=== PATIENT | male | born 1980 | race African-American/Black ===

== ENCOUNTER 2018-10-06 13:20 | Emergency (ER) | payer SELFPAY ==
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
== END 2018-10-06 14:17 | disposition home or self-care (01) ==
LOC: ER 13:20
DX: T21.42XA Corrosion of unspecified degree of abdominal wall, initial encounter (principal); T22.4 Corrosion of unspecified degree of shoulder and upper limb, except wrist and hand; T65.891A Toxic effect of other specified substances, accidental (unintentional), initial encounter; Y93.89 Activity, other specified; Y92.89 Other specified places as the place of occurrence of the external cause; Y99.8 Other external cause status; Z88.5 Allergy status to narcotic agent
CPT/HCPCS: 99281

== ENCOUNTER 2019-05-06 22:30 | Observation (INO) | payer SELFPAY ==
[2019-05-06 22:59] LABS: Absolute Lymphocytes (CBC) 2.1 K/uL (0.7-4.9); Hematocrit 43.8 % (39.6-49.0); Lymphocytes % 38.8 % (15.3-44.8); MPV 9.5 fL (7.6-11.3); RBC Red Blood Cell Count 5.72 M/uL (4.33-5.43)
[2019-05-06 23:00] LABS: Protime INR 0.99
[2019-05-06 23:14] LABS: ALT/SGPT 44 U/L (12-78); Albumin 3.4 g/dL (3.4-5.0); Alkaline Phosphatase 99 U/L (45-117); BUN Blood Urea Nitrogen 18 mg/dL (7-18); Bicarbonate 24 mmol/L (21-32); Bilirubin Direct < 0.1 mg/dL (0-0.2); Bilirubin Total 0.2 mg/dL (0.2-1.0); Glucose Level 92 mg/dL (74-106); NT PRO-BNP 7 pg/mL (<125); Protein, Total 7.4 g/dL (6.4-8.2); Sodium Level 141 mmol/L (136-145); Troponin (Emerg Dept Use Only) < 0.02 ng/mL (0.0-0.045)
[2019-05-06 23:15] LABS: AST/SGOT 29 U/L (15-37); Potassium 3.4 mmol/L (3.5-5.1)
--- NOTE | 2019-05-06 23:22 | ER ---
Nurse's Notes [facility] Name: Fer Rodarte Age: 38 yrs Sex: Male : 1980 Arrival Date: 05/06/2019 Time: 22:31 Bed 24 Private MD: Diagnosis: Chest pain, unspecified Presentation: 05/05 22:32 Chief complaint: EMS states: Pt reported chest pain for the past two days, reports it's ea in the left side, does not radiate, pain at 6/10. Coronavirus screen: Patient denies fever greater than 100.4F, cough, shortness of breath, or difficulty breathing. Proceed with normal triage process. Ebola Screen: No symptoms or risks identified at this time. Initial Sepsis Screen: Does the patient meet any 2 criteria? No. Patient's initial sepsis screen is negative. Does the patient have a suspected source of infection? No. Patient's initial sepsis screen is negative. Risk Assessment: Do you want to hurt yourself or someone else? Patient reports no desire to harm self or others. 22:32 Method Of Arrival: EMS[facility] ea 22:32 Acuity: WOODY 3 ea Historical: - Allergies: 22:38 Vicodin; ea - Home Meds: 22:38 None [Active]; ea - PMHx: 22:38 heart attacks x 2; ea - PSHx: 22:38 Hernia repair; Knee surgery; ea - Immunization history:: Adult Immunizations up to date. - Social history:: Patient/guardian denies using alcohol, street drugs, The patient lives with family, Smoking status: Patient reports the use of cigarette tobacco products, smokes one-half pack cigarettes per day. - Family history:: not pertinent. Screenin:36 Abuse screen: Denies threats or abuse. Nutritional screening: No deficits noted. ea Tuberculosis screening: No symptoms or risk factors identified. Fall Risk None identified. Assessment: 22:38 General: Appears in no apparent distress. Behavior is calm, cooperative, appropriate ea for age. Pain: Complains of pain in anterior aspect of left upper chest Pain does not radiate. Pain currently is 6 out of 10 on a pain scale. Pain began 2-3 days ago. Neuro: Level of Consciousness is awake, alert, obeys commands, Oriented to person, place, time, situation. Cardiovascular: Patient's skin is warm and dry. Derm: Skin is dry, Skin is normal, Skin temperature is warm. 23:50 Reassessment: Patient and/or family updated on plan of care and expected duration. Pain ea level reassessed. Patient is alert, oriented x 3, equal unlabored respirations, skin warm/dry/pink. 05/06 00:55 Reassessment: Patient and/or family updated on plan of care and expected duration. Pain ea level reassessed. Patient is alert, oriented x 3, equal unlabored respirations, skin warm/dry/pink. Report called to Cherri PORRAS on second floor. Pt admitted to second floor, left ED via wheelchair per tech. Vital Signs: 05/05 22:32 Weight 113.4 kg; Height 6 ft. 1 in. (185.42 cm); Pain 6/10; ea 22:33 BP 135 / 93; Pulse 94; Resp 15; Temp 97.4; Pulse Ox 98% ; lt1 05/06 00:00 BP 113 / 69; Pulse 92; Resp 18; Pulse Ox 98% ; ea 00:55 BP 106 / 68; Pulse 86; Resp 18; Pulse Ox 98% on R/A; ea 05/05 22:32 Body Mass Index 32.98 (113.40 kg, 185.42 cm) ea ED Course: 05/05 22:31 Patient arrived in ED. ds1 22:31 Joana Rodriguez MD is Attending Physician. ma2 22:32 Keysha Bailey, CHIQUITA is Primary Nurse. ea 22:35 Triage completed. ea 22:36 Patient has correct armband on for positive identification. Bed in low position. Call ea light in reach. monitoring engineer on. Pulse ox on. NIBP on. 22:36 Arm band placed on right wrist. Patient placed in an exam room, on a stretcher, on ea pulse oximetry. 22:36 Patient maintains SpO2 saturation greater than 95% on room air. ea 22:49 Initial lab(s) drawn, by me, sent to lab. EKG done, by ED staff. Inserted saline lock: lt1 20 gauge in left wrist, using aseptic technique. 22:51 XRAY Chest (1 view) In Process Unspecified. EDMS 23:21 Joana Aguilera MD is Hospitalizing Provider. ma2 23:36 No provider procedures requiring assistance completed. Patient admitted, IV remains in ea place. Administered Medications: 23:29 Drug: Aspirin Chewable Tablet 324 mg Route: PO; ea 05/06 00:29 Follow up: Response: No adverse reaction ea Outcome: 05/05 23:21 Decision to Hospitalize by Provider. ma2 23:45 Instructed on the need for admit, Demonstrated understanding of instructions. ea 05/06 01:05 Admitted to Med/surg accompanied by tech, via wheelchair, room 211, with chart, Report ea called to Cherri PORRAS Condition: stable 01:07 Patient left the ED. ea Signatures: Dispatcher [employer] EDIL Olivia Priest ds1 Keysha Bailey RN RN Joana Childs MD MD ma2 Lucy Pollard 1
--- NOTE | 2019-05-06 23:23 | EDPHYS ---
Physician Documentation [facility] Name: Fer Rodarte Age: 38 yrs Sex: Male : 1980 Arrival Date: 05/06/2019 Time: 22:31 Bed 24 Private MD: ED Physician Joana Rodriguez HPI: 05/05 22:33 This 38 yrs old Black Male presents to ER via Unassigned with complaints of Chest Pain. ma2 22:33 The patient or guardian reports chest pain that is located primarily in the substernal ma2 area. The pain does not radiate. Associated signs and symptoms: Pertinent positives: Pertinent negatives: cough, headache, lower extremity swelling, vomiting. The chest pain is described as aching. Severity of pain: At its worst the pain was very mild in the emergency department the pain is unchanged. The patient has experienced similar episodes in the past. Historical: - Allergies: 22:38 Vicodin; ea - Home Meds: 22:38 None [Active]; ea - PMHx: 22:38 heart attacks x 2; ea - PSHx: 22:38 Hernia repair; Knee surgery; ea - Immunization history:: Adult Immunizations up to date. - Social history:: Patient/guardian denies using alcohol, street drugs, The patient lives with family, Smoking status: Patient reports the use of cigarette tobacco products, smokes one-half pack cigarettes per day. - Family history:: not pertinent. ROS: 22:33 Constitutional: Negative for fever, chills, and weight loss. ma2 22:33 All other systems are negative. Exam: 22:33 Constitutional: This is a well developed, well nourished patient who is awake, alert, ma2 and in no acute distress. Head/Face: Normocephalic, atraumatic. Eyes: Pupils equal round and reactive to light, extra-ocular motions intact. Lids and lashes normal. Conjunctiva and sclera are non-icteric and not injected. Cornea within normal limits. Periorbital areas with no swelling, redness, or edema. ENT: Nares patent. No nasal discharge, no septal abnormalities noted. Tympanic membranes are normal and external auditory canals are clear. Oropharynx with no redness, swelling, or masses, exudates, or evidence of obstruction, uvula midline. Mucous membranes moist. Neck: Trachea midline, no thyromegaly or masses palpated, and no cervical lymphadenopathy. Supple, full range of motion without nuchal rigidity, or vertebral point tenderness. No Meningismus. Chest/axilla: Normal chest wall appearance and motion. Nontender with no deformity. No lesions are appreciated. Cardiovascular: Regular rate and rhythm with a normal S1 and S2. No gallops, murmurs, or rubs. Normal PMI, no JVD. No pulse deficits. Respiratory: Lungs have equal breath sounds bilaterally, clear to auscultation and percussion. No rales, rhonchi or wheezes noted. No increased work of breathing, no retractions or nasal flaring. Abdomen/GI: Soft, non-tender, with normal bowel sounds. No distension or tympany. No guarding or rebound. No evidence of tenderness throughout. Vital Signs: 22:32 Weight 113.4 kg; Height 6 ft. 1 in. (185.42 cm); Pain 6/10; ea 22:33 BP 135 / 93; Pulse 94; Resp 15; Temp 97.4; Pulse Ox 98% ; lt1 05/06 00:00 BP 113 / 69; Pulse 92; Resp 18; Pulse Ox 98% ; ea 00:55 BP 106 / 68; Pulse 86; Resp 18; Pulse Ox 98% on R/A; ea 05/05 22:32 Body Mass Index 32.98 (113.40 kg, 185.42 cm) ea MDM: 05/05 22:31 Patient medically screened. ma2 22:33 Differential diagnosis: abnormal EKG, gastroesophageal reflux disease (GERD), stable ma2 angina. GLO Risk Score: not applicable. Data reviewed: vital signs, nurses notes. Counseling: I had a detailed discussion with the patient and/or guardian regarding: the historical points, exam findings, and any diagnostic results supporting the discharge/admit diagnosis, the presence of at least one elevated blood pressure reading (>120/80) during this emergency department visit. 23:19 HEART Score: History: Moderately Suspicious (1), ECG: Normal (0), Age: < or = 45 years ma2 (0), Troponin: < or = 1 x Normal Limit (0), Total Score = 2. 05/05 22:32 Order name: Basic Metabolic Panel; Complete Time: 23:19 ma2 05/05 22:32 Order name: CBC with Diff; Complete Time: 23:19 [facility] 05/05 22:32 Order name: LFT's; Complete Time: 23:19 [facility] 05/05 22:32 Order name: Magnesium; Complete Time: 23:19 [facility] 05/05 22:32 Order name: NT PRO-BNP; Complete Time: 23:19 [facility] 05/05 22:32 Order name: PT-INR; Complete Time: 23:19 [facility] 05/05 22:32 Order name: Troponin (emerg Dept Use Only); Complete Time: 23:19 [facility] 05/05 22:32 Order name: XRAY Chest (1 view) [facility] 05/06 00:27 Order name: Echo with Doppler [facility] 05/06 00:28 Order name: Lipid Profile [facility] 05/06 00:28 Order name: Lipid Profile [facility] 05/06 00:28 Order name: Troponin I [facility] 05/06 00:28 Order name: Troponin I [facility] 05/06 00:28 Order name: Troponin I [facility] 05/05 22:32 Order name: EKG; Complete Time: 22:33 [facility] 05/05 22:32 Order name: Cardiac monitoring; Complete Time: 22:49 [facility] 05/05 22:32 Order name: EKG - Nurse/Tech; Complete Time: 22:49 [facility] 05/05 22:32 Order name: IV Saline Lock; Complete Time: 22:49 [facility] 05/05 22:32 Order name: Labs collected and sent; Complete Time: 22:49 [facility] 05/05 22:32 Order name: O2 Per Protocol; Complete Time: 22:49 [facility] 05/05 22:32 Order name: O2 Sat Monitoring; Complete Time: 22:49 [facility] 05/06 00:27 Order name: Heart Healthy [facility] 05/06 00:27 Order name: EKG Electrocardiogram [facility] 05/06 00:28 Order name: EKG Electrocardiogram [facility] Administered Medications: 23:29 Drug: Aspirin Chewable Tablet 324 mg Route: PO; ea 05/06 00:29 Follow up: Response: No adverse reaction ea Disposition: 05/06/19 23:21 Hospitalization ordered by Joana Aguilera for Observation. Preliminary diagnosis is Chest pain, unspecified. - Bed requested for Telemetry/MedSurg (observation). - Status is Observation. ea - Condition is Stable. - Problem is new. - Symptoms are unchanged. Signatures: Dispatcher [employer] Natalee Quezada RN RN dw Antunez, Elena, RN RN Joana Childs MD MD wi2 Corrections: (The following items were deleted from the chart) 00:32 05/05 23:21 Hospitalization Ordered by Joana Aguilera MD for Observation. Preliminary dw diagnosis is Chest pain, unspecified. Bed requested for Telemetry/MedSurg (observation). Status is Observation. Condition is Stable. Problem is new. Symptoms are unchanged. ma2 05/06 01:07 00:32 05/06/2019 23:21 Hospitalization Ordered by Joana Aguilera MD for Observation. ea Preliminary diagnosis is Chest pain, unspecified. Bed requested for Telemetry/MedSurg (observation). Status is Observation. Condition is Stable. Problem is new. Symptoms are unchanged. dw
[2019-05-06] MEDS ORDERED: ASPIRIN 81 MG CHEWABLE TABLET ONE (23:32)
[2019-05-06] MEDS ORDERED: MORPHINE 4 MG/ML SYR IV PRN (23:59)
[2019-05-06] MEDS ORDERED: ACETAMINOPHEN 500 MG TAB PO PRN (23:59)
[2019-05-06] MEDS ORDERED: ALPRAZOLAM 0.25 MG TABLET PO PRN (23:59)
[2019-05-07 01:44] VITALS: BMI 31.6
[2019-05-07 05:16] VITALS: O2SAT 96
--- NOTE | 2019-05-07 08:08 | P.HP ---
Certification for Inpatient Patient admitted to: Observation With expected LOS: <2 Midnights Practitioner: I am a practitioner with admitting privileges, knowledge of patient current condition, hospital course, and medical plan of care. Services: Services provided to patient in accordance with Admission requirements found in Title 42 Section 412.3 of the Code of Federal Regulations Patient History Date of Service: 05/07/19 Reason for admission: Chest pain rule out acute coronary syndrome History of Present Illness: Patient is a 38-year-old gentleman who came to the hospital with chest discomfort. Pain was in the sternal region. He had no diaphoresis, no shortness of breath, no nausea or vomiting. He was not lightheaded. He really did not communicate much 2 me but home me she has some heart history. He has had no intervention. No bypass no stand. He said he had no blockages. He would not elaborate and was sleeping through most of the conversation. I tried to wake him up on numerous occasions to talk to me. He seemed like he was not interested in conversation. At this time he will be admitted for observation for chest pain. He will be ruled out and will get an echocardiogram. If this negative & his symptoms have resolved he should be able to go home Allergies No Known Allergies Allergy (Unverified 05/07/19 01:44) Home Medications: NK [No Home Meds] 05/07/19 - Past Medical/Surgical History Has patient received pneumonia vaccine in the past: No Diabetic: No -: heart attack x2 -: hernia -: knee surgery - Family History Father Family History: Reviewed- Non-Contributory - Social History Smoking Status: Current every day smoker Alcohol use: Yes CD- Drugs: No Caffeine use: No Place of Residence: Home Review of Systems 10-point ROS is otherwise unremarkable Physical Examination - Vital Signs Temperature: 97.2 F Blood Pressure: 130/60 Pulse: 67 Respirations: 16 Pulse Ox (%): 96 - Physical Exam General: Alert, In no apparent distress, Oriented x3, Other (Sleeping and not really interacting) HEENT: Atraumatic, PERRLA, Mucous membr. moist/pink, EOMI, Sclerae nonicteric Neck: Supple, 2+ carotid pulse no bruit, No LAD, Without JVD or thyroid abnormality Respiratory: Clear to auscultation bilaterally, Normal air movement Cardiovascular: Regular rate/rhythm, Normal S1 S2, No murmurs Gastrointestinal: Normal bowel sounds, Soft and benign, Non-distended, No tenderness Musculoskeletal: No clubbing, No swelling, No contractures, No tenderness Integumentary: No rashes Neurological: Normal gait, Normal speech, Normal strength at 5/5 x4 extr, Normal tone, Sensation intact, Cranial nerves 3-12 intact, Normal affect Lymphatics: No axilla or inguinal lymphadenopathy - Studies Laboratory Data (last 24 hrs) 05/06/19 22:39: PT 11.7, INR 0.99 05/06/19 22:39: WBC 5.3, Hgb 14.3, Hct 43.8, Plt Count 191 05/06/19 22:39: Sodium 141, Potassium 3.4 L, BUN 18, Creatinine 1.28, Glucose 92 , Magnesium 2.0, Total Bilirubin 0.2, AST 29, ALT 44, Alkaline Phosphatase 99 Assessment & Plan - Problems (Diagnosis) (1) Chest pain, rule out acute myocardial infarction Current Visit: Yes Status: Acute - Plan 1. Serial troponins and EKG 2. If his troponins are negative will get Cardiology consultation. Otherwise he will can follow up as an outpatient if his workup is negative. 3. Echocardiogram 4. Anti-platelet therapy, beta-sydnee, statin, and O2 as needed 5. IV morphine for pain 6. Nitro p.r.n. Discharge Plan: Home Plan to discharge in: 24 Hours - Advance Directives Does patient have a Living Will: No Does patient have a Durable POA for Healthcare: No - Code Status/Comfort Care Code Status Assessed: Yes Code Status: Full Code Critical Care: No Time Spent Managing PTS Care (In Minutes): 45
[2019-05-07 08:24] LABS: HDL Cholesterol 54 mg/dL (40-60); LDL Cholesterol, Calculated 100 (<130); Troponin I < 0.02 ng/mL (0.0-0.045)
--- NOTE | 2019-05-07 08:32 | RAD REPORT ---
EXAM DESCRIPTION: RAD - Chest Single View - 05/06/2019 10:50 pm CLINICAL HISTORY: CHEST PAIN Chest pain. COMPARISON: No comparisons FINDINGS: Portable technique limits examination quality. The lungs are grossly clear. The heart is normal in size. No displaced fractures. IMPRESSION: No acute intrathoracic process suspected.
[2019-05-07 08:50] LABS: Urine Appearance CLEAR; Urine Bilirubin NEGATIVE (NEG); Urine Blood NEGATIVE (NEG); Urine Color YELLOW; Urine Glucose NEGATIVE (NEG); Urine Protein NEGATIVE (NEG); Urine Specific Gravity 1.025 (1.005-1.030); Urine Urobilinogen 0.2 mg/dL (0.2-1.0)
[2019-05-07 08:59] LABS: Barbiturates NEGATIVE (NEGATIVE); Benzodiazepines NEGATIVE (NEGATIVE); Cocaine NEGATIVE (NEGATIVE); METHAMPHETAM NEGATIVE (NEGATIVE); Methadone NEGATIVE (NEGATIVE); Opiates NEGATIVE (NEGATIVE); Phencyclidine NEGATIVE (NEGATIVE); THC Cannibis NEGATIVE (NEGATIVE)
[2019-05-07] MEDS ORDERED: METOPROLOL TAR 50 MG TAB PO SCH (09:00)
[2019-05-07] MEDS ORDERED: ASPIRIN EC 81 MG TAB PO SCH (09:00)
[2019-05-07 09:26] LABS: Urine Bacteria <20 /HPF (NONE SEEN); Urine Culture Reflex Order REFLEXED; Urine Mucus 1+ /HPF (NONE SEEN); Urine RBC <5 /HPF (NONE SEEN); Urine Urothelial Cells <5 /HPF (NONE SEEN)
--- NOTE | 2019-05-07 11:21 | EKG ---
Test Date: 2019-05-06 Test Time: 22:47:01 Stockroom Clerk: VENICE MEASUREMENT RESULTS: Intervals: Rate: 93 AL: 152 QRSD: 98 QT: 348 QTc: 432 [place]: P: 43 AL: 152 QRS: 34 T: 0 INTERPRETIVE STATEMENTS: Normal sinus rhythm Nonspecific T wave abnormality Abnormal ECG No previous ECG available for comparison Electronically Signed On 05-07-19 11:20:13 CDT by Amado Machuca
[2019-05-07 17:40] VITALS: BP 127/65; TEMP 97.7
--- NOTE | 2019-05-08 03:03 | P.DS ---
Discharge Date: 05/08/19 Disposition: AMA-LEFT AGAINST MEDICAL ADVIC Discharge Condition: GOOD Reason for Admission: Chest pain rule out acute coronary syndrome - Problems (1) Chest pain, rule out acute myocardial infarction Status: Acute Brief History of Present Illness: Patient is a 38-year-old gentleman who came to the hospital with chest discomfort. Pain was in the sternal region. He had no diaphoresis, no shortness of breath, no nausea or vomiting. He was not lightheaded. He really did not communicate much 2 me but home me she has some heart history. He has had no intervention. No bypass no stand. He said he had no blockages. He would not elaborate and was sleeping through most of the conversation. I tried to wake him up on numerous occasions to talk to me. He seemed like he was not interested in conversation. At this time he will be admitted for observation for chest pain. He will be ruled out and will get an echocardiogram. If this negative & his symptoms have resolved he should be able to go home Hospital Course: Patient left AMA pending ECHO. Vital Signs/Physical Exam: Temp Pulse Resp BP Pulse Ox 97.7 F 81 16 127/65 96 05/07/19 16:00 05/07/19 16:00 05/07/19 16:00 05/07/19 16:00 05/07/19 16:00 Laboratory Data at Discharge: WBC 5.3 K/uL (4.3-10.9) 05/06/19 22:39 Hgb 14.3 g/dL (13.6-17.9) 05/06/19 22:39 Hct 43.8 % (39.6-49.0) 05/06/19 22:39 Plt Count 191 K/uL (152-406) 05/06/19 22:39 PT 11.7 SECONDS (9.5-12.5) 05/06/19 22:39 INR 0.99 05/06/19 22:39 Sodium 141 mmol/L (136-145) 05/06/19 22:39 Potassium 3.4 mmol/L (3.5-5.1) L 05/06/19 22:39 BUN 18 mg/dL (7-18) 05/06/19 22:39 Creatinine 1.28 mg/dL (0.55-1.3) 05/06/19 22:39 Glucose 92 mg/dL (74-106) 05/06/19 22:39 Magnesium 2.0 mg/dL (1.8-2.4) 05/06/19 22:39 Total Bilirubin 0.2 mg/dL (0.2-1.0) 05/06/19 22:39 AST 29 U/L (15-37) 05/06/19 22:39 ALT 44 U/L (12-78) 05/06/19 22:39 Alkaline Phosphatase 99 U/L (45-117) 05/06/19 22:39 Troponin I < 0.02 ng/mL (0.0-0.045) 05/07/19 16:17 Triglycerides 99 mg/dL (<150) 05/07/19 07:56 Cholesterol 174 mg/dL (<200) 05/07/19 07:56 HDL Cholesterol 54 mg/dL (40-60) 05/07/19 07:56 Cholesterol/HDL Ratio 3.22 05/07/19 07:56 Home Medications: Aspirin [Aspirin EC 81 MG] 81 mg PO DAILY #30 tablet. 05/07/19 Atorvastatin Calcium [Lipitor] 40 mg PO DAILY #30 tablet 05/07/19 New Medications: Aspirin [Aspirin EC 81 MG] 81 mg PO DAILY #30 tablet. Atorvastatin Calcium [Lipitor] 40 mg PO DAILY #30 tablet Patient Discharge Instructions: Patient left AMA. FOLLOW-UP WITH PRIMARY CARE PROVIDER IN 1-2 WEEKS. FOLLOW-UP WITH CARDIOLOGY IN 1-2 WEEKS. RETURN TO THE ER IF symptoms are worsening. CALL or TEXT DR. STONE AT [phone] IF ANY QUESTIONS REGARDING HOSPITAL STAY. PLEASE CALL THE FLOOR AT [phone] IF ANY MEDICATION OR NURSING QUESTIONS. Diet: AHA Activity: Fall precautions Followup: Amado Machuca MD [ACTIVE - CAN ADMIT] - Time spent managing pt's care (in minutes): 15
--- NOTE | 2019-05-10 08:02 | ECHO ---
HEIGHT: 6 ft 1.5 in WEIGHT: 243 lb 8 oz DATE OF STUDY: 05/07/[address]: Joana Aguilera MD 2-DIMENSIONAL: YES M.MODE: YES DOPPLER: YES COLOR FLOW: YES TDS: NO PORTABLE: NO DEFINITY: NO BUBBLE STUDY: NO DIAGNOSIS: CHEST PAIN RULE OUT ACS CARDIAC HISTORY: CATHERIZATION: NO SURGERY: NO PROSTHETIC VALVE: NO PACEMAKER: NO MEASUREMENTS (cm) DIASTOLIC (NORMALS) SYSTOLIC (NORMALS) IVSd 1.0 (0.6-1.2) LA Diam 2.8 (1.9-4.0) LVEF 68% LVIDd 4.5 (3.5-5.7) LVIDs 2.8 (2.0-3.5) %FS 38% LVPWd 1.0 (0.6-1.2) Ao Diam 3.0 (2.0-3.7) 2 DIMENSIONAL ASSESSMENT: RIGHT ATRIUM: NORMAL LEFT ATRIUM: NORMAL RIGHT VENTRICLE: NORMAL LEFT VENTRICLE: NORMAL TRICUSPID VALVE: NORMAL MITRAL VALVE: NORMAL PULMONIC VALVE: NORMAL AORTIC VALVE: NORMAL PERICARDIAL EFFUSION: NONE AORTIC ROOT: NORMAL LEFT VENTRICULAR WALL MOTION: NORMAL DOPPLER/COLOR FLOW: NORMAL COMMENTS: NORMAL 2D ECHOCARDIOGRAM WITH DOPPLER. NO WALL MOTION ABNORMALITY. NO EFFUSION. TECHNOLOGIST: Wilber BEDOYA
== END 2019-05-07 17:24 | disposition left against medical advice (07) ==
LOC: ER 22:30 → ERHOLD 05-07 00:36 → 2ND 05-07 00:54
PROVIDERS: ADMIT Hospitalist; ATTEND Hospitalist
DX: R07.9 Chest pain, unspecified (principal); I25.2 Old myocardial infarction; R94.31 Abnormal electrocardiogram [ECG] [EKG]; F17.210 Nicotine dependence, cigarettes, uncomplicated
CPT/HCPCS: 36415; 71045; 80048; 80061; 80076; 80307; 81001; 83735; 83880; 84484; 85025; 85610; 87086; 87088; 93005; 93306; 99285; G0378